=== PATIENT | female | born 1955 ===

== ENCOUNTER 2019-10-04 20:20 | Emergency (ER) | payer BC ==
[2019-10-04 20:49] VITALS: BP 141/75
[2019-10-04] MEDS ORDERED: Clindamycin CAP* 150 MG PO ONE ×2 (21:56)
--- NOTE | 2019-10-04 22:00 | UC ---
Hand/Wrist HPI - HPI Summary HPI Summary: 64 year old female presents with onset of right thumb pain, redness, and swelling. States pain started yesterday as a mild discomfort with pressure that has progressively worsened over the past several hours with increased redness and swelling. Pain located to the pad of the distal right thumb. Describes as a constant throbbing. Worsens with touch and if held in dependent position. No known injury. Denies fever, chills, arthralgia, or decreased ROM. - History Of Current Complaint Chief Complaint: UCUpperExtremity Stated Complaint: RIGHT THUMB COMPLAINT Time Seen by Provider: 10/04/19 21:36 Hx Obtained From: Patient Pain Intensity: 6 - Allergies/Home Medications Allergies/Adverse Reactions: Allergies Allergy/AdvReac Type Severity Reaction Status Date / Time meloxicam [From Mob] Allergy Rash Verified 10/04/19 20:41 Penicillins Allergy Rash Verified 10/04/19 20:41 Sulfa (Sulfonamide Allergy Rash Verified 10/04/19 20:41 Antibiotics) Home Medications: Home Medications Amitriptyline TAB* [Elavil TAB*] 10 mg PO BEDTIME 10/04/19 [History Confirmed ] Aspirin [Raoul Aspirin EC Low Dose 81 MG] 81 mg PO DAILY 10/04/19 [History Confirmed 10/04/19] Azelastine 0.1% Nasal (NF) [Astepro 0.1% Nasal (NF)] 1 spray INH DAILY 10/04/19 [History Confirmed 10/04/19] Fluticasone NASAL SPRAY 50MCG* [Flonase NASAL SPRAY 50MCG*] 1 spray .ROUTE DAILY 10/04/19 [History Confirmed 10/04/19] LevoCETirizine TAB (NF) [Xyzal TAB (NF)] 5 mg PO DAILY 10/04/19 [History Confirmed 10/04/19] Omeprazole 40 mg PO DAILY 10/04/19 [History Confirmed 10/04/19] clindamycin HCL [Clindamycin HCl] 300 mg PO QID #26 capsule 10/04/19 [Rx] PMH/Surg Hx/FS Hx/Imm Hx Cardiovascular History: Hypertension GI/ History: Gastroesophageal Reflux - Surgical History Surgical History: Yes Surgery Procedure, Year, and Place: basal cell carcinoma removals x2. L hand - Family History Family History: Denies significant family medical history - Social History Occupation: Employed Full-time Lives: With Family Alcohol Use: None Substance Use Type: None Smoking Status (MU): Never Smoked Tobacco Review of Systems All Other Systems Reviewed And Are Negative: Yes Constitutional: Negative: Fever, Chills Skin: Positive: Other - See HPI Respiratory: Positive: Negative Cardiovascular: Positive: Negative Gastrointestinal: Positive: Negative Genitourinary: Positive: Negative Musculoskeletal: Negative: Arthralgia, Decreased ROM Neurological/Mental Status: Positive: Negative Is Patient Immunocompromised?: No Physical Exam - Summary Physical Exam Summary: GENERAL APPEARANCE: Well developed, well nourished, alert and cooperative, and appears to be in no acute distress. CARDIAC: Normal S1 and S2. No S3, S4 or murmurs. Rhythm is regular. There is no peripheral edema, cyanosis or pallor. Extremities are warm and well perfused. Capillary refill is less than 2 seconds. Peripheral pulses intact. LUNGS: Clear to auscultation without rales, rhonchi, wheezing or diminished breath sounds. ABDOMEN: Positive bowel sounds. Soft, nondistended, nontender. No guarding or rebound. No masses or hepatosplenomegally. MUSKULOSKELETAL: Normal muscular development. Normal gait. EXTREMITIES: Tenderness over the palmar aspect of the distal right thumb with erythema, edema, and mild fluctuance. No joint tenderness. Full ROM. SKIN: Skin normal color, texture and turgor. Triage Information Reviewed: Yes Vital Signs: Initial Vital Signs Temp 98.1 F 10/04/19 20:44 Pulse 83 10/04/19 20:44 Resp 18 10/04/19 20:44 BP 141/75 10/04/19 20:44 Pulse Ox 100 10/04/19 20:44 Vital Signs Reviewed: Yes Hand/Wrist Course/Dx - Course Course Of Treatment: 64 year old female presents with onset of right thumb pain, redness, and swelling. States pain started yesterday as a mild discomfort with pressure that has progressively worsened over the past several hours with increased redness and swelling. Pain located to the pad of the distal right thumb. Describes as a constant throbbing. Worsens with touch and if held in dependent position. No known injury. Denies fever, chills, arthralgia, or decreased ROM. Afebrile. Mildly hypertensive otherwise VSS. Patient had tenderness over the palmar aspect of the distal right thumb with erythema, edema, and mild fluctuance. No joint tenderness. Full ROM. Remainder of exam was unremarkable. Discussed with the patient that I was concerned that her symptoms were likely an early felon and considering that she was presenting late on Monday and I would not be able to refer her to hand surgery immediately recommending that we start her on an antibiotic, have her do warm soaks, and have her contact orthopedic surgery first thing Monday morning for follow up. She was counseled to have a low threshold to seek evaluation in the ED if her symptoms worsen at all. Anticipatory guidance and warning symptoms reviewed with patient. Verbalizes understanding and agrees with POC. - Differential Dx/Diagnosis Differential Diagnosis/HQI/PQRI: Cellulitis, Infection, Paronychia Provider Diagnosis: Felon of finger of left hand Discharge ED - Sign-Out/Discharge Documenting (check all that apply): Patient Departure All imaging exams completed and their final reports reviewed: No Studies - Discharge Plan Condition: Stable Disposition: HOME Prescriptions: clindamycin HCL [Clindamycin HCl] 300 mg PO QID #26 capsule Patient Education Materials: Cellulitis (ED) Referrals: Rosa Roberts MD [Primary Care Provider] - Edis Dai MD [Medical Doctor] - 3 Days (Call Monday morning for an appointment.) Additional Instructions: You have an infection of your thumb that I suspect is an infection of the pulp space called a felon. Take clindamycin 300 mg 1 capsule 4 times a day for 7 days. You're given the first dose of the antibiotic in the clinic tonight. Soak the thumb in a warm water and Epsom salt solution for 15 minutes 3-4 times a day. Take acetaminophen (Tylenol) according to directions as needed for pain. Follow-up with orthopedic surgery in 3 days for a reevaluation of the infection. Call first thing Monday morning to make an appointment. Seek immediate medical attention in the emergency room if you develop fever greater than 100.5 F, have severe pain that is not managed with pain medication , increased redness that rapidly spreads, increased swelling of the thumb, joint pain, or any worsening of symptoms. - Billing Disposition and Condition Condition: STABLE Disposition: Home
== END 2019-10-04 22:14 | disposition home or self-care (01) ==
LOC: UCCORT 20:20
DX: L03.012 Cellulitis of left finger (principal); I10 Essential (primary) hypertension; K21.9 Gastro-esophageal reflux disease without esophagitis; Z79.899 Other long term (current) drug therapy; Z88.0 Allergy status to penicillin; Z88.2 Allergy status to sulfonamides; Z88.6 Allergy status to analgesic agent; Z79.82 Long term (current) use of aspirin
CPT/HCPCS: 99212; A9270-GY; G0463